=== PATIENT | female | born 1985 | race Caucasian/White ===

== ENCOUNTER 2024-11-03 21:08 | Emergency (ER) | payer SELFPAY ==
[~2024-11-03] VITALS: Ht 172.7 cm; Wt 100.0 kg
[2024-11-03 21:16] VITALS: TEMP 37.2
[2024-11-03] MEDS: IPRATROPIUM/ALBUTEROL 0.5-3(2.5)MG/3ML NEB HHN ONE (23:02)
[2024-11-03 23:04] VITALS: PULSE 87; RESP 18; O2SAT 98
[2024-11-03 23:28] LABS: BASOPHILS % 0.7 % (0.0-2.0); EOSINOPHILS % 2.4 % (0.0-5.0); HEMATOCRIT. 38.8 % (36.0-48.0); HEMOGLOBIN. 12.8 g/dL (12.0-16.0); MEAN CORPUSCULAR HEMOGLOBIN 28.2 pg (28.0-32.0); MEAN CORPUSCULAR HGB CONC 33.1 g/dL (31.0-37.0); MEAN CORPUSCULAR VOLUME 85.3 fL (81.0-99.0); MEAN PLATELET VOLUME 7.4 fl (7.4-10.4); MONOCYTES % 8.1 % (2.0-8.0); NEUTROPHILS % 55.8 % (40.0-76.0); PLATELET 302 x1000/uL (130-400); RED BLOOD CELL COUNT 4.55 mill/uL (4.2-5.4); WHITE BLOOD COUNT 7.7 x1000/uL (4.5-11.0)
[2024-11-03 23:37] LABS: CHLORIDE 105 mEq/L (98-107); POTASSIUM 3.7 mEq/L (3.5-5.1); SODIUM 139 mEq/L (136-145)
[2024-11-03 23:39] LABS: CALCIUM 9.3 mg/dL (8.7-10.4); CARBON DIOXIDE 27 mEq/L (21-32)
[2024-11-03 23:44] LABS: CREATININE 0.8 mg/dL (0.6-1.0); GLUCOSE 121 mg/dL (70-105); UREA NITROGEN BLOOD 13 mg/dL (9-23)
[2024-11-03 23:45] LABS: ALANINE AMINOTRANSFERASE 25 IU/L (10-49)
[2024-11-03 23:46] LABS: ALBUMIN 4.2 g/dL (3.2-4.8); ASPARTATE AMINOTRANSFERASE 25 IU/L (<34); BILIRUBIN DIRECT 0.2 mg/dL (<=3.0)
[2024-11-03 23:47] LABS: BILIRUBIN TOTAL 0.5 mg/dL (0.1-1.0); PROTEIN TOTAL 7.7 g/dL (6.0-8.3)
[2024-11-03 23:52] LABS: HCG SCREEN NEGATIVE
[2024-11-03 23:56] LABS: PROTHROMBIN TIME 10.3 sec (9.6-11.0)
[2024-11-04 00:15] LABS: TROPONIN I HIGH SENSITIVITY < 4 ng/L (3.0-34)
[2024-11-04] MEDS ORDERED: P50 MT (00:34)
[2024-11-04] MEDS ORDERED: ALBU18HF2 IH (00:34)
[2024-11-04 00:49] VITALS: BP 109/75; PULSE 92; RESP 15; O2SAT 100
== END 2024-11-04 00:51 | disposition home or self-care (01) ==
LOC: ER 21:08
DX: J45.909 Unspecified asthma, uncomplicated (principal); F15.10 Other stimulant abuse, uncomplicated; F17.200 Nicotine dependence, unspecified, uncomplicated; Z98.890 Other specified postprocedural states; Z86.59 Personal history of other mental and behavioral disorders
CPT/HCPCS: 80076; 80048; 84703; 83880; 83690; 85025; 85610; 84484; 36415; 71045; 94640; 93005; 99285; Z7610 ×3; 94070